=== PATIENT | female | born 1980 | race Caucasian/White ===

== ENCOUNTER 2019-02-10 11:27 | Outpatient (CLI) | payer BC, SELFPAY ==
--- NOTE | 2019-02-10 11:20 | DI.RAD_ITS ---
SYMPTOMS/DIAGNOSIS: DYSPNEA, R06.00 PA AND LATERAL CHEST: The heart is normal in size. The lungs are clear. The mediastinal structures and pleura appear intact. CONCLUSION: Normal chest.
[2019-02-10 11:54] LABS: HCT 41.5 % (36.0-46.0); Mean Corp. HGB Concentration 33.7 g/dL (32.0-36.0); Mean Corpuscular Hemoglobin 29.4 pg (27.0-33.0); Mean Corpuscular Volume 87.2 fL (80-95); Mean Platelet Volume 9.8 fL (8.0-11.0); Platelet Count 221 x1000/uL (130-400); RBC 4.76 m/cumm (4.00-5.20); RBC Distribution Width 13.8 % (11.7-14.6); White Blood Cell Count 3.68 k/cumm (4.4-10.8)
[2019-02-10 12:58] LABS: D-Dimer 341 ng/mlFEU (<500)
== END 2019-02-10 11:47 ==
PROVIDERS: PCP Physician Assistant Medical; Visit Provider Family Medicine
DX: R06.00 Dyspnea, unspecified (principal)
CPT/HCPCS: 36415; 85027; 71046; 85379